=== PATIENT | female | born 1950 | race Caucasian/White ===

== ENCOUNTER 2018-05-08 08:31 | Outpatient (CLI) | payer OTHER ==
[2018-05-08] VITALS (11 sets, daily range): BP systolic 119–151; BP diastolic 63–83
[~2018-05-08] VITALS: Ht 162.6 cm; Wt 102.1 kg
[2018-05-08] MEDS ORDERED: LIDOCAINE WITH 8.4% SOD BICARB 3 ML DISP.SYRIN. ONE (08:53)
[2018-05-08 09:04] LABS: BASO % 1 % (0-3); EOS # 0.1 x10^3/uL (0.0-0.7); EOS % 2 % (0-3); HEMATOCRIT 29.5 % (36.0-47.0); HEMOGLOBIN 10.4 g/dL (12.0-15.5); LYMPH # 1.3 x10^3/uL (1.0-4.8); LYMPH % 27 % (24-48); MEAN CORPUSCULAR HEMOGLOBIN 34 pg (25-35); MEAN CORPUSCULAR HGB CONC 35 g/dL (31-37); MEAN CORPUSCULAR VOLUME 95 fL (79-100); MONO # 0.4 x10^3/uL (0.0-1.1); MONO % 8 % (0-9); NEUT % 62 % (31-73); PLATELET COUNT 224 x10^3/uL (140-400); RED BLOOD COUNT 3.11 x10^6/uL (3.50-5.40); RED CELL DISTRIBUTION WIDTH 15.4 % (11.5-14.5); WHITE BLOOD COUNT 4.8 x10^3/uL (4.0-11.0)
[2018-05-08] MEDS ORDERED: CHOL2000 PO (09:04)
[2018-05-08] MEDS ORDERED: SERT50TA PO (09:04)
[2018-05-08] MEDS ORDERED: TOFA5TAB PO (09:04)
[2018-05-08] MEDS ORDERED: ZOLP5TAB5 PO (09:04)
[2018-05-08] MEDS ORDERED: METH2.5T PO (09:04)
[2018-05-08] MEDS ORDERED: LISI1TAB7 PO (09:04)
[2018-05-08] MEDS ORDERED: OXYC1TAB15 PO (09:04)
[2018-05-08] MEDS ORDERED: DICL100G18 TP (09:04)
[2018-05-08] MEDS ORDERED: fentaNYL PF VIAL 100 MCG/2 ML VIAL ONE (09:05)
[2018-05-08] MEDS ORDERED: FLUMAZENIL 0.5 MG/5 ML VIAL. IV ONE (09:05)
[2018-05-08] MEDS ORDERED: MIDAZOLAM HCL/PF 2 MG/2 ML VIAL. ONE (09:05)
[2018-05-08] MEDS ORDERED: NALOXONE 0.4 MG/ML VIAL. ONE (09:06)
[2018-05-08] MEDS ORDERED: fentaNYL PF VIAL 100 MCG/2 ML VIAL IV ONE (09:15)
[2018-05-08] MEDS ORDERED: MIDAZOLAM HCL/PF 2 MG/2 ML VIAL. IV ONE (09:15)
[2018-05-08] MEDS ORDERED: LIDOCAINE WITH 8.4% SOD BICARB 3 ML DISP.SYRIN. IJ ONE (09:15)
[2018-05-08 09:17] LABS: PROTHROMBIN TIME PATIENT 13.8 SEC (11.7-14.0)
--- NOTE | 2018-05-08 10:55 | NUR ---
Discharge Note: GINNY BELTRAN Discharge instructions and discharge home medications reviewed with Patient and a copy given. All questions have been answered and understanding verbalized. The following instructions and handouts were given: education was given to patient regarding wound care, moderate sedation, and bone marrow aspiration. Education was also given to patient to continue taking home medications as directed. Pt verbalized understanding. Discontinued lines and drains: peripheral iv was discontinued with no complications. Catheter tip was intact. Patient discharged to home with self care via wheelchair. Pt was accompanied by .
--- NOTE | 2018-05-08 12:26 | RAD ---
CT-guided bone marrow biopsy. 05/08/2018 12:21 PM Indication: Myelodysplastic syndrome Discussion: The risks and benefits of the procedure, including but not limited to, bleeding and infection were discussed patient. Informed consent was obtained. The patient was brought to the CT scanner and placed in the prone position. A timeout procedure was performed. Transfer [employer] Operator CT imaging of the pelvis demonstrated left ilium amenable to bone marrow biopsy. The overlying soft tissues were prepped and draped using maximum sterile barrier technique. 1% lidocaine without epinephrine was administered for local anesthesia. Under intermittent CT guidance, an OncControl needle was advanced into the bone marrow of the left iliac crest. 2 Aspirates and 1 core biopsy samples were obtained. Samples were delivered to pathology was present at the time of procedure. The needle was removed and manual pressure held to achieve hemostasis. No immediate complications were identified. The procedure was performed under conscious sedation including continuous cardiopulmonary monitoring via dedicated sedation nurse. Sedation time: 20 minutes Impression: Successful CT-guided bone marrow biopsy of the left iliac crest . PQRS Compliance Statement: One or more of the following individualized dose reduction techniques were utilized for this examination: 1. Automated exposure control 2. Adjustment of the mA and/or kV according to patient size 3. Use of iterative reconstruction technique
== END 2018-05-08 11:12 | disposition home or self-care (01) ==
LOC: INTRAD 08:31
PROVIDERS: ATTEND Psychiatry & Neurology Child & Adolescent Psychiatry
DX: D46.9 Myelodysplastic syndrome, unspecified (principal); D50.9 Iron deficiency anemia, unspecified
CPT/HCPCS: 36415; 38222; 77012; 85025; 85610; 99152; J2250; J3010; 88184; 88185; 88237